=== PATIENT | female | born 1985 | race Caucasian/White ===

== ENCOUNTER 2017-09-20 17:48 | Emergency (ER) | payer BC, OTHER ==
[~2017-09-20] VITALS: Ht 157.5 cm; Wt 121.6 kg
[2017-09-20] MEDS ORDERED: BUSPAR15 MG PO (18:30)
[2017-09-20] MEDS ORDERED: ZOLOFT50 MG PO (18:30)
[2017-09-20] MEDS ORDERED: ZYRTEC10 M2 PO (18:30)
[2017-09-20] MEDS ORDERED: IMITREX50 MG PO (18:31)
[2017-09-20] MEDS ORDERED: FIORICET 50-301 EACH PO (20:16)
[2017-09-20] MEDS ORDERED: COMPAZINE5 MG PO (20:16)
[2017-09-20 20:35] VITALS: BP 118/81
== END 2017-09-20 20:41 | disposition home or self-care (01) ==
LOC: EME 17:48
DX: G43.909 Migraine, unspecified, not intractable, without status migrainosus (principal); M54.2 Cervicalgia; M79.602 Pain in left arm; R42 Dizziness and giddiness; R04.0 Epistaxis; Z90.710 Acquired absence of both cervix and uterus
CPT/HCPCS: 99281; 99285; J1100; J1200; J1885; J2765; J7030